=== PATIENT | female | born 1970 | race Caucasian/White ===

== ENCOUNTER 2017-04-17 04:32 | Emergency (ER) | payer OTHER ==
[~2017-04-17] VITALS: Ht 162.6 cm; Wt 104.3 kg
[~2017-04-17 04:32] MED LIST: CIPRO500 MG PO; DEXTROAMP-AMPHE30 MG PO; HYDROCHLOROTHIA25 MG PO; LEVOTHYROXINE50 MCG PO; LOSARTAN-HCTZ1 EACH PO; MOTRIN800 MG PO; NIACIN ER1000 MG PO; NORCO 5/3251 TABLET PO
[2017-04-17 05:11] LABS: ADD MIUA? YES; BILIRUBIN NEGATIVE; BLOOD LARGE; COLOR YELLOW ((YELLOW)); GLUCOSE (STRIP) NEGATIVE; INTERNAL CONTROL VALID? YES; KETONES NEGATIVE; LEUKOCYTES TRACE; NITRITE NEGATIVE; PROTEIN (STRIP) 30; SPECIFIC GRAVITY 1.018 (1.000-1.030); UROBILINOGEN 0.2 MG/DL (0.2-1.0)
[2017-04-17 05:16] LABS: BACTERIA NONE SEEN /HPF; EPITHELIAL CELLS 1+ /HPF; MUCUS TRACE /LPF; RED BLOOD CELLS TNTC /HPF (0-5); UCUL ADDED? NO
[2017-04-17 05:35] LABS: CHLORIDE 105 mEq/L (99-109); POTASSIUM 3.9 mEq/L (3.7-5.4); SODIUM 139 mEq/L (136-147)
[2017-04-17 05:37] LABS: GLUCOSE 96 mg/dL (70-99)
[2017-04-17 05:38] LABS: ANION GAP 10 MEQ/L (2-14)
[2017-04-17 05:38] LABS: HEMATOCRIT 42.8 % (36.0-46.0); MCH 31.1 PG (29.0-34.0); MCHC 33.6 G/DL (30.0-36.0); MCV 92.4 FL (83-99); MEAN PLAT.VOLUME 9.5 uM^3 (9.5-12.4); PLATELET COUNT 259 K/uL (156-360); RBC DIS.WIDTH-CV 12.4 % (11.8-14.6); RBC DIS.WIDTH-SD 41.4 % (39-53); RED BLOOD COUNT 4.63 M/uL (3.80-5.20); WHITE BLOOD COUNT 12.4 K/uL (4.1-10.2)
[2017-04-17 05:39] LABS: TOTAL BILIRUBIN 0.7 mg/dL (0.0-1.0)
[2017-04-17 05:40] LABS: ALKALINE PHOSPHATASE 76 IU/L (3-129)
[2017-04-17 05:41] LABS: GFR ESTIMATE (CALCULATED) > 59 mL/min/
[2017-04-17 05:42] LABS: UREA NITROGEN (BUN) 19 mg/dL (9-23)
[2017-04-17 05:44] LABS: LIPASE 42 U/L (1.0-51.0)
[2017-04-17] MEDS ORDERED: ZOFRAN8 MG PO (06:00)
[2017-04-17] MEDS ORDERED: NORCO 5/3251 TABLET PO (06:00)
[2017-04-17] MEDS ORDERED: FLOMAX0.4 MG PO (06:00)
[2017-04-17 07:57] VITALS: BP 115/70
== END 2017-04-17 07:58 | disposition home or self-care (01) ==
LOC: EME 04:32
PROVIDERS: Emergency Medicine
DX: N20.1 Calculus of ureter (principal); R31.9 Hematuria, unspecified; Z87.442 Personal history of urinary calculi; Z87.891 Personal history of nicotine dependence
CPT/HCPCS: 74176; 80053; 81003; 83690; 84703; 85027; 99281; 99285; J2270; J2405; J7030

== ENCOUNTER 2017-10-16 08:45 | Emergency (ER) | payer OTHER ==
[~2017-10-16] VITALS: Ht 162.6 cm; Wt 109.5 kg
[~2017-10-16 08:45] MED LIST changes: +FLOMAX0.4 MG PO; +ZOFRAN8 MG PO
[2017-10-16 08:46] VITALS: BP 131/88
== END 2017-10-16 12:30 | disposition home or self-care (01) ==
LOC: EME 08:45
PROC: 3E0234Z Introduction of Serum, Toxoid and Vaccine into Muscle, Percutaneous Approach (ICD-10-PCS; principal; 2017-10-16)
PROC: 0HQ1XZZ Repair Face Skin, External Approach (ICD-10-PCS; principal; 2017-10-16)
DX: S01.112A Laceration without foreign body of left eyelid and periocular area, initial encounter (principal); S00.83XA Contusion of other part of head, initial encounter; W18.2XXA Fall in (into) shower or empty bathtub, initial encounter; Y92.002 Bathroom of unspecified non-institutional (private) residence as the place of occurrence of the external cause; Y93.E1 Activity, personal bathing and showering; Z23 Encounter for immunization
CPT/HCPCS: 99281; 99283

== ENCOUNTER → 2018-03-02 | Outpatient (CLI) | payer OTHER | END | disposition home or self-care (01) | LOC: CDC 10:07 | DX: Z01.810 Encounter for preprocedural cardiovascular examination (principal); E66.01 Morbid (severe) obesity due to excess calories; Z68.35 Body mass index [BMI] 35.0-35.9, adult; R94.31 Abnormal electrocardiogram [ECG] [EKG] | CPT/HCPCS: 93000 ==

== ENCOUNTER 2018-05-16 21:51 | Inpatient (IN) | payer OTHER ==
[~2018-05-16] VITALS: Ht 162.6 cm; Wt 105.7 kg
[~2018-05-16 21:51] MED LIST changes: +ADDERALL30 MG PO; +ASPIRIN81 M2 PO; +HYZAAR 50-121 TABLET PO; +NIASPAN,SLO-N1000 MG PO; +SYNTHROID50 MCG PO; +WELLBUTRIN XL300 MG PO; +ZOCOR5 MG PO
[2018-05-17 06:07] VITALS: BP 113/55
[2018-05-17 12:22] VITALS: BP 121/66
[2018-05-17 16:12] VITALS: BP 115/59
[2018-05-17 20:49] VITALS: BP 123/59
[2018-05-18 00:24] VITALS: BP 120/56
[2018-05-18 04:19] VITALS: BP 118/62
[2018-05-18 05:15] LABS: HEMATOCRIT 40.5 % (36.0-46.0); HEMOGLOBIN 13.8 G/DL (11.9-15.5); MCH 30.8 PG (29.0-34.0); MCHC 34.1 G/DL (30.0-36.0); MCV 90.4 FL (83-99); PLATELET COUNT 276 K/uL (156-360); RBC DIS.WIDTH-CV 12.3 % (11.8-14.6); RBC DIS.WIDTH-SD 40.4 % (39-53); RED BLOOD COUNT 4.48 M/uL (3.80-5.20); WHITE BLOOD COUNT 12.7 K/uL (4.1-10.2)
[2018-05-18 05:52] LABS: CHLORIDE 101 MEQ/L (99-109); CREATININE 0.9 MG/DL (0.6-1.3); GFR ESTIMATE (CALCULATED) > 59 mL/min/; GLUCOSE 88 mg/dL (70-99); POTASSIUM 4.7 MEQ/L (3.7-5.4); SODIUM 137 MEQ/L (136-147); UREA NITROGEN (BUN) 12 mg/dL (9-23)
[2018-05-18 08:09] VITALS: BP 135/71
[2018-05-18] MEDS ORDERED: ACTIGALL300 MG PO (08:56)
[2018-05-18] MEDS ORDERED: PRILOSEC20 MG PO (08:56)
[2018-05-18] MEDS ORDERED: DILAUDID4 MG PO (08:56)
[2018-05-18] MEDS ORDERED: ONDANSETRON HCL8 MG PO (08:56)
[2018-05-18] MEDS ORDERED: COLACE100 MG PO (08:56)
[2018-05-18 11:35] VITALS: BP 99/68
== END 2018-05-18 15:26 | disposition home or self-care (01) | DRG 621 ==
LOC: ENRESERV 21:51 → 2EAST 05-17 05:38 → 2SOUTH 05-17 05:38 → ENRESERV 05-17 09:59 → 2SOUTH 05-17 11:04 → 2EAST 05-17 11:31 → 2SOUTH 05-17 14:10 → ENPENDDIS 05-18 12:46 → 2EAST 05-18 15:26
PROVIDERS: Surgery
PROC: 0DB64Z3 Excision of Stomach, Percutaneous Endoscopic Approach, Vertical (ICD-10-PCS; principal; 2018-05-17)
DX: E66.01 Morbid (severe) obesity due to excess calories (principal); E78.5 Hyperlipidemia, unspecified; I10 Essential (primary) hypertension; K21.9 Gastro-esophageal reflux disease without esophagitis; E03.9 Hypothyroidism, unspecified; F90.2 Attention-deficit hyperactivity disorder, combined type; I34.0 Nonrheumatic mitral (valve) insufficiency; F32.9 Major depressive disorder, single episode, unspecified; G89.29 Other chronic pain; Z68.41 Body mass index [BMI] 40.0-44.9, adult; Z79.82 Long term (current) use of aspirin; Z79.899 Other long term (current) drug therapy; Z98.51 Tubal ligation status; Z98.891 History of uterine scar from previous surgery
CPT/HCPCS: 80048; 82948; 85027; 86850; 86900; 86901; 88300; C9113; J0131; J1100; J1644; J2250; J2405; J2710; J2765; J3010; J3480; J7643; S0074